=== PATIENT | female | born 1940 | race Caucasian/White ===

== ENCOUNTER → 2016-08-18 | Outpatient (CLI) | payer MEDICARE, BC ==
[2015-10-29 11:30] VITALS: BP 95/57
[~2016-08-18] MED LIST: HYDR-2666 PO; IBUP800T2 PO
--- NOTE | 2016-08-18 15:20 | CARD ---
APPROVED REPORT EXAM: LIMITED Two-dimensional echocardiogram Other Information Quality : Average Rhythm : NSR INDICATION Evaluation of chemotherapy treatment 2D DIMENSIONS RVDd2.7 (2.9-3.5cm)Left Atrium(2D)3.0 (1.6-4.0cm) IVSd0.8 (0.7-1.1cm)Aortic Root(2D)2.7 (2.0-3.7cm) LVDd5.2 (3.9-5.9cm)PWd0.8 (0.7-1.1cm) LVDs2.8 (2.5-4.0cm)SV101.5 ml LVEF(%)52.1 (>50%) LEFT VENTRICLE The left ventricle is normal size. There is normal left ventricular wall thickness. Left ventricle sy stolic function is normal. The Ejection Fraction is 50-55%. GLS Avg -14.51% There is normal LV segmen candace wall motion. RIGHT VENTRICLE The right ventricle is normal size. The right ventricular systolic function is normal. ATRIA The left atrium size is normal. The right atrium size is normal. GREAT VESSELS The aortic root is normal in size. PERICARDIAL EFFUSION There is no evidence of significant pericardial effusion. Critical Notification Critical Value: No <Conclusion> Limited study. Follow-up for chemotherapy. The left ventricle is normal size. Left ventricle systolic function is normal. The Ejection Fraction is 50-55%. GLS Avg -14.51% There is normal left ventricular wall thickness. The right ventricle is normal size. The right ventricular systolic function is normal. There is no evidence of significant pericardial effusion.
== END | disposition home or self-care (01) ==
LOC: ECHO 12:05
PROVIDERS: ATTEND Internal Medicine Hematology & Oncology
DX: C50.211 Malignant neoplasm of upper-inner quadrant of right female breast (principal)
CPT/HCPCS: 93308

== ENCOUNTER → 2016-11-07 | Outpatient (CLI) | payer MEDICARE, BC ==
[2015-10-29 11:30] VITALS: BP 95/57
--- NOTE | 2016-11-08 11:40 | CARD ---
APPROVED REPORT EXAM: Two-dimensional and M-mode echocardiogram with Doppler and color Doppler. Other Information Quality : GoodHR: 60bpm Rhythm : NSR INDICATION Breast cancer, Ongoing chemo 2D DIMENSIONS RVDd2.7 (2.9-3.5cm)Left Atrium(2D)3.1 (1.6-4.0cm) IVSd1.1 (0.7-1.1cm)Aortic Root(2D)3.2 (2.0-3.7cm) LVDd4.3 (3.9-5.9cm)LVOT Diameter2.1 (1.8-2.4cm) PWd1.1 (0.7-1.1cm)LVDs3.6 (2.5-4.0cm) FS (%) 17.1 %SV30.1 ml LVEF(%)36.0 (>50%) Aortic Valve AoV Peak Damon.129.9cm/sAoV VTI27.0cm AO Peak GR.6.7mmHgLVOT Peak Damon.83.1cm/s AO Mean GR.3mmHgAVA (VMAX)2.17cm2 AI P 1/2 Sumj827vs Mitral Valve MV E Kvqtsiop13.6cm/sMV E Peak Gr.4mmHg MV DECEL [id number] A Uxmmofuu154.1cm/s MV E Mean Gr.1mmHgE/A Ratio0.7 MV A Qywmdxtt770jn Pulmonary Valve PV Peak Fjhjoilh465.8cm/s Tricuspid Valve TR P. Cieimkjf184wf/sTR Peak Gr.20mmHg Pulmonary Vein S1 Xcmvfupu73.2cm/sD2 Cuvnpqcy81.6cm/s PVa exwonzal29hvyf LEFT VENTRICLE The left ventricle is normal size. There is mild concentric left ventricular hypertrophy. Left ventri cate systolic function is mildly to moderately impaired. The Ejection Fraction is 40%. There is abnorm al septal wall motion. Transmitral Doppler flow pattern is Grade I-abnormal relaxation pattern. RIGHT VENTRICLE The right ventricle is normal size. There is normal right ventricular wall thickness. The right ventr icular systolic function is normal. ATRIA The left atrium size is normal. The right atrium size is normal. The interatrial septum is intact wit h no evidence for an atrial septal defect or patent foramen ovale as noted on 2-D or Doppler imaging. AORTIC VALVE The aortic valve is mildly sclerotic. The aortic valve is trileaflet. Doppler and Color Flow revealed mild aortic regurgitation. There is no significant aortic valvular stenosis. MITRAL VALVE Mitral annular calcification is mild. The mitral valve leaflets are thickened. There is no evidence o f mitral valve prolapse. There is no mitral valve stenosis. Doppler and Color Flow revealed mild mitr al regurgitation. TRICUSPID VALVE Doppler and Color Flow revealed mild tricuspid regurgitation. The pulmonary artery systolic pressure is estimated at 27 mmHg. There is no pulmonary hypertension. PULMONIC VALVE Doppler and Color Flow revealed mild pulmonic valvular regurgitation. There is no pulmonic valvular s tenosis. GREAT VESSELS The aortic root is normal in size. The ascending aorta is normal in size. The pulmonary artery is nor mal. The IVC is normal in size and collapses >50% with inspiration. PERICARDIAL EFFUSION There is no evidence of significant pericardial effusion. Critical Notification Critical Value: No <Conclusion> Left ventricle systolic function is mildly to moderately impaired. The Ejection Fraction is 40%. GLS Avg -14.6%. Transmitral Doppler flow pattern is Grade I-abnormal relaxation pattern. Mild aortic regurgitation. Mild mitral regurgitation. Mild tricuspid regurgitation. The pulmonary artery systolic pressure is estimated at 27 mmHg. There is no evidence of significant pericardial effusion.
== END | disposition home or self-care (01) ==
LOC: ECHO 07:43
PROVIDERS: ATTEND Internal Medicine Hematology & Oncology
DX: I80.3 Phlebitis and thrombophlebitis of lower extremities, unspecified (principal)
CPT/HCPCS: 93306

== ENCOUNTER → 2016-12-01 | Outpatient (CLI) | payer MEDICARE, BC ==
[2015-10-29 11:30] VITALS: BP 95/57
[~2016-12-01] MED LIST changes: -HYDR-2666 PO; +HYDR-2758 PO; +IBUP800T19 PO; -IBUP800T2 PO; +REGADENOSON 0.4 MG/5 ML DISP.SYRIN. IV ONE
--- NOTE | 2016-12-01 12:52 | RAD ---
APPROVED REPORT Test Type: Pharmacological Stress Nurse/Tech: Radha Kruse R.N. Test Indications: cardiomyopathy, shortness of breath Cardiac History: see ehr Medications: see ehr Medical History: chemotherapy Resting ECG: wide complex QRS Resting Heart Rate: 61 bpm Resting Blood Pressure: 130/68mmHg Pretest Chest Pain: No chest pain Nurse/Tech Notes lungs cta, heart tones regular, good radial pulse Consent: The procedure was explained to the patient in lay terms. Informed consent was witnessed. Lisandro eout was entered into [employer]. History and Stress Test performed by Radha Kruse R.N. Pharm. Details Pharmacologic stress testing was performed using 0.4mg per 5ml of regadenoson given intravenously ove r 7-10 seconds. Stress Symptoms No chest pain or symptoms. POST EXERCISE Reason for Termination: Infusion complete Target HR: No Max HR: 96 bpm Max Blood Pressure: 140/67mmHg Chest Pain: No. Arrhythmia: No. ST Change: No. INTERPRETATION Stress EKG Conclusion: No evidence of stress induced EKG changes. Imaging Protocol IMAGE PROTOCOL: Rest Tc-99m/stress Tc-99m 1 day Rest: Stress: Viability: Radiopharm.Tc99m OirqczzniFb14b Sestamibi Yfwu68mDj 33.5mCi Duration 15min. 10min. Img Date 12/01/2016 12/01/2016 Inj-Img Pwgd34yrx. 75min. Rest Admin Site:IV - Right AntecubitalAdministrator:Whitney Pollack RT (R)(N) Stress Admin Site: IV - Right AntecubitalAdministrator: MITCH Cloud, ARRT (R)(N) STRESS DATA End Diast. Vol.96.0mlAv. Heart Rate68.0bpm End Syst. Vol.40.0mlCO Index BSA0.0L/min Myocardial Mald306.0gEject. Ohzleibe58.0% Stress Rates Pk. Fill Rate1.69EDV/secLVtime Pk. Fill 97.86msec Pk. Empty Rate2.58ESV/secLVtime Pk. Wfisv488.58msec 06/20 Pk. Fill1.24EDV/sec Stress Scores Regional WT1.00Summed WT9.00 Regional WM0.00Summed WM11.00 LV Perfusion There is a small fixed apical perfusion defect suggestive of prior infarct versus apical thinning wit hout ischemia. There is a large defect on REST images only in the mid to distal 1/3 of LV, suggestive of artifact du e to motion. Wall Motion Grossly normal wall motion. EF 58%. LV Perf. Quant 17 Seg. SSS8.00 17 Seg. SRS19.00 17 Seg. SDS0.00 Stress Defect Extent (% LAD)21.30Rest Defect Extent (% LAD)35.00Rev. Defect Extent (% LAD)0.00 Stress Defect Extent (% LCX) 15.00Rest Defect Extent (% LCX)30.00Rev. Defect Extent (% LCX)0.00 Stress Defect Extent (% RCA)1.10Rest Defect Extent (% RCA)51.10Rev. Defect Extent (% RCA)0.00 Stress Defect Extent (% SUSAN)20.20Rest Defect Extent (% SUSAN)44.60Rev. Defect Extent (% SUSAN)0.00 Other Information Quality:Average Risk Assessment: Low Risk Conclusion 1. No evidence of stress induced EKG changes. 2. Fixed apical perfusion defect suggsetive of prior infarct or apical thinning. No reversibility 3. Significant motion artifact. 4. Normal EF at 58%. 5. Low risk study.
== END | disposition home or self-care (01) ==
LOC: NM 08:57
PROVIDERS: ATTEND Internal Medicine Cardiovascular Disease
DX: I42.9 Cardiomyopathy, unspecified (principal)
CPT/HCPCS: 78452; 93017; 96374; 96375; 96376; A9500; J2785

== ENCOUNTER → 2018-06-07 | Outpatient (CLI) | payer MEDICARE, BC ==
[2015-10-29 11:30] VITALS: BP 95/57
[~2018-06-07] MED LIST changes: -HYDR-2758 PO; +HYDR-2761 PO; -REGADENOSON 0.4 MG/5 ML DISP.SYRIN. IV ONE
--- NOTE | 2018-06-07 12:19 | CARD ---
MR#: [id number] Date of Study: 06/07/2018 Ordering Physician: ADAL JENKINS, Referring Physician: ADAL JENKINS Tech: Karen Alonso RDCS APPROVED REPORT EXAM: Two-dimensional and M-mode echocardiogram with Doppler and color Doppler. Other Information Quality : GoodHR: 72bpm Rhythm : NSR INDICATION Cardiomyopathy 2D DIMENSIONS RVDd3.4 (2.9-3.5cm)Left Atrium(2D)3.7 (1.6-4.0cm) IVSd0.9 (0.7-1.1cm)Aortic Root(2D)2.8 (2.0-3.7cm) LVDd4.8 (3.9-5.9cm)LVOT Diameter1.8 (1.8-2.4cm) PWd0.8 (0.7-1.1cm)LVDs3.6 (2.5-4.0cm) FS (%) 25.2 %SV53.9 ml M-Mode DIMENSIONS Left Atrium(MM)2.81 (2.5-4.0cm)Aortic Root3.33 (2.2-3.7cm) Aortic Valve AoV Peak Damon.113.6cm/sAoV VTI21.2cm AO Peak GR.5.2mmHgLVOT Peak Damon.97.1cm/s AO Mean GR.2mmHgAVA (VMAX)2.28cm2 GLYNN (VTI)2.76jf7NJ P 1/2 Zeqk0154nm Mitral Valve MV E Xpdujvyp07.1cm/sMV DECEL VNKH023ah MV A Rtixvdix94.0cm/sE/A Ratio0.7 MV A Mmrpkgvj368tp Pulmonary Valve PV Peak Rkpdwwzk870.9cm/s Tricuspid Valve TR P. Lfubnrwq631oy/sRAP FDQUOAYO6ouBk TR Peak Gr.79izXrMEWY35eoTm Pulmonary Vein S1 Igbowqyl56.1cm/sD2 Ebpnlyxk67.4cm/s PVa vjdymukk007mcsw LEFT VENTRICLE The left ventricle is normal size. There is normal left ventricular wall thickness. Left ventricle sy stolic function is mildly decreased. The Ejection Fraction is estimated at 45%. There is mild hypokin esis in the basal to mid anteroseptal wall. Transmitral Doppler flow pattern is Grade I-abnormal rela xation pattern. RIGHT VENTRICLE The right ventricle is normal size. There is normal right ventricular wall thickness. The right ventr icular systolic function is normal. ATRIA The left atrium size is normal. The right atrium size is normal. The interatrial septum is intact wit h no evidence for an atrial septal defect or patent foramen ovale as noted on 2-D or Doppler imaging. AORTIC VALVE The aortic valve is calcified but opens well. The aortic valve is trileaflet. Doppler and Color Flow revealed mild aortic regurgitation. There is no significant aortic valvular stenosis. MITRAL VALVE The mitral valve is normal in structure and function. There is no evidence of mitral valve prolapse. There is no mitral valve stenosis. Doppler and Color-flow revealed mild mitral regurgitation. TRICUSPID VALVE The tricuspid valve is normal in structure and function. Doppler and Color Flow revealed trace tricus pid regurgitation. The PA pressure was estimated at 22 mmHg. There is no tricuspid valve prolapse or vegetation. There is no tricuspid valve stenosis. PULMONIC VALVE The pulmonary valve is normal in structure and function. Doppler and Color Flow revealed mild pulmoni c valvular regurgitation. There is no pulmonic valvular stenosis. GREAT VESSELS The aortic root is normal in size. The ascending aorta is normal in size. The IVC is normal in size a nd collapses >50% with inspiration. PERICARDIAL EFFUSION There is no evidence of significant pericardial effusion. Critical Notification Critical Value: No <Conclusion> The left ventricle is normal size. Left ventricle systolic function is mildly decreased. The Ejection Fraction is estimated at 45%. There is mild hypokinesis in the basal to mid anteroseptal wall. There is no significant aortic valvular stenosis. Doppler and Color Flow revealed mild aortic regurgitation. Doppler and Color-flow revealed mild mitral regurgitation. Doppler and Color Flow revealed trace tricuspid regurgitation. The PA pressure was estimated at 22 mmHg. Signed by : Marko Rogers MD Electronically Approved : 06/07/2018 12:18:18
== END | disposition home or self-care (01) ==
LOC: ECHO 07:44
PROVIDERS: ATTEND Internal Medicine Cardiovascular Disease
DX: Z01.810 Encounter for preprocedural cardiovascular examination (principal); I08.8 Other rheumatic multiple valve diseases
CPT/HCPCS: 93306

== ENCOUNTER → 2018-06-10 | Outpatient (CLI) | payer MEDICARE, BC ==
[2015-10-29 11:30] VITALS: BP 95/57
[~2018-06-10] MED LIST changes: +REGADENOSON 0.4 MG/5 ML DISP.SYRIN. IV ONE
--- NOTE | 2018-06-10 14:46 | RAD ---
MR#: [id number] Date of Study: 06/10/2018 Ordering Physician: ADAL JENKINS, Referring Physician: HÉCTOR CRUZ Tech: MITCH Cloud, ARRT (R) (N) APPROVED REPORT Test Type: Pharmacological Stress Nurse/Tech: Teresa Jaeger RN Test Indications: Preop clearance Cardiac History: No known cardiac Medications: See Electronic Medical Record Medical History: See Electronic Medical Record Resting ECG: SR with BBB Resting Heart Rate: 71 bpm Resting Blood Pressure: 136/74mmHg Pretest Chest Pain: No chest pain Nurse/Tech Notes S1,S2 and lungs are clear to auscultation. Consent: The procedure was explained to the patient in lay terms. Informed consent was witnessed. Lisandro eout was entered into [employer]. History and Stress Test performed by PRATIK Lr Pharm. Details Pharmacologic stress testing was performed using 0.4mg per 5ml of regadenoson given intravenously ove r 7-10 seconds. Stress Symptoms No chest pain or symptoms. POST EXERCISE Reason for Termination: Infusion complete Target HR: No Max HR: 111 bpm Max Blood Pressure: 152/79mmHg Blood Pressure response to exercise: Normal blood pressure response during stress. Heart Rate response to exercise: WNL Chest Pain: No. Arrhythmia: Yes. ST Change: No. INTERPRETATION Stress EKG Conclusion: Non-diagnostic EKG due to LBBB Imaging Protocol IMAGE PROTOCOL: Rest Tc-99m/stress Tc-99m 1 day Rest: Stress: Viability: Radiopharm.Tc99m CrtphcivyIy62z Sestamibi Dose11.8mCi 32mCi Img Date 06/10/2018 06/10/2018 Inj-Img Xznz82umi. 60min. Rest Admin Site:IV - Right AntecubitalAdministrator:PRATIK rL Stress Admin Site: IV - Right AntecubitalAdministrator: PRATIK Lr STRESS DATA End Diast. Vol.54.0mlLVEDV index BSA35.0ml End Syst. Vol.14.0mlLVESV index BSA9.0ml Myocardial Zzyy241.0gEject. Ltdoehal01.0% Stress Scores Regional WT0.00Summed WT7.00 Regional WM0.00Summed WM1.00 LV Perfusion Normal perfusion at stress. Due to significant motion artifact, rest images are degraded Wall Motion Normal wall motion with EF > 55% LV Perf. Quant 17 Seg. SSS0.00 17 Seg. SRS9.00 17 Seg. SDS0.00 Stress Defect Extent (% LAD)0.00Rest Defect Extent (% LAD)11.90Rev. Defect Extent (% LAD)0.00 Stress Defect Extent (% LCX) 0.00Rest Defect Extent (% LCX)15.00Rev. Defect Extent (% LCX)0.00 Stress Defect Extent (% RCA)0.00Rest Defect Extent (% RCA)23.30Rev. Defect Extent (% RCA)0.00 Stress Defect Extent (% SUSAN)0.00Rest Defect Extent (% SUSAN)17.00Rev. Defect Extent (% SUSAN)0.00 Other Information Quality:Fair Risk Assessment: Low Risk Conclusion 1. Non-diagnostic baseline EKG due to LBBB 2. Normal perfusion at stress. 3. Rest images obscured due to motion artifact. 4. Normal EF. 5. Low risk study. Signed by : Ernst Montoya, Electronically Approved : 06/10/2018 14:45:22
== END | disposition home or self-care (01) ==
LOC: NM 08:37
PROVIDERS: ATTEND Internal Medicine Cardiovascular Disease
DX: Z01.810 Encounter for preprocedural cardiovascular examination (principal); I42.9 Cardiomyopathy, unspecified; Z85.3 Personal history of malignant neoplasm of breast
CPT/HCPCS: 78452; 93017; 96374; A9500; J2785